=== PATIENT | female | born 1985 | race African-American/Black ===

== ENCOUNTER 2021-10-12 18:11 | Emergency (ER) | payer MEDICAID ==
[~2021-10-12] VITALS: Ht 170.2 cm; Wt 147.0 kg
[~2021-10-12 18:11] MED LIST: FERR256T PO; PREN-88 PO
[2021-10-12] MEDS ORDERED: ALBUTEROL (0.083%) 2.5MG/3ML NEB HHN STA (18:37)
[2021-10-12] MEDS ORDERED: PREDNISONE 20MG TABLET PO STA (18:37)
[2021-10-12] MEDS ORDERED: IPRATROPIUM BROMIDE (0.02%) 0.5MG/2.5ML NEB HHN STA (18:37)
[2021-10-12 20:04] VITALS: BP 140/61
[2021-10-12] MEDS ORDERED: ALBU6.7H9 INH (20:09)
[2021-10-12] MEDS ORDERED: ALBU05 NEB (20:09)
[2021-10-12] MEDS ORDERED: P20 MT (20:09)
== END 2021-10-12 20:27 | disposition home or self-care (01) ==
LOC: ER 18:11
DX: J45.901 Unspecified asthma with (acute) exacerbation (principal); R00.0 Tachycardia, unspecified; R03.0 Elevated blood-pressure reading, without diagnosis of hypertension; I51.7 Cardiomegaly; Z79.51 Long term (current) use of inhaled steroids
CPT/HCPCS: 93005; 94644; 99285; J7512; Z7610

== ENCOUNTER 2022-11-12 18:23 | Emergency (ER) | payer MEDICAID ==
[~2022-11-12] VITALS: Ht 170.2 cm; Wt 91.0 kg
[~2022-11-12 18:23] MED LIST changes: +ALBU05 NEB; +ALBU6.7H3 INH; +P20 MT
[2022-11-12 18:34] VITALS: BP 138/88
[2022-11-12] MEDS ORDERED: IBUPROFEN 400MG TABLET PO ONE (20:00)
[2022-11-12] MEDS ORDERED: IBUP-2028 MT (21:30)
== END 2022-11-12 22:10 | disposition home or self-care (01) ==
LOC: ER 18:49
DX: M25.552 Pain in left hip (principal); M25.562 Pain in left knee; J45.909 Unspecified asthma, uncomplicated; Z79.899 Other long term (current) drug therapy; Z98.890 Other specified postprocedural states
CPT/HCPCS: 73502; 73552; 73560; 81025; 99284